=== PATIENT | female | born 1940 | race Caucasian/White ===

== ENCOUNTER 2016-06-23 12:32 | Observation (INO) | payer MEDICARE, BC ==
--- NOTE | ~2016-06-23 | CO ---
Unit #: [id number] #: [id number] Patient: ASHA MORALES [id number] [facility]. [place] [address] [facility]. [place], [place] [address] [id number] I MR#: [id number] NAME: ASHA MORALES ROOM: 550 Age: 75 Sex: F Admission Date: 06/23/2016 : 1940 Attending Physician: Iglesia Tse M.D. Primary Care Physician: James Chaudhari Jr., M.D. Consultation Date: 06/24/2016 CONSULTATION REPORT REASON FOR CONSULTATION Palpitations. HISTORY OF PRESENT ILLNESS This is a 75-year-old white female, who sees Dr. Mariano in the office, who has a history of pulmonary embolism, has a vena cava filter, hypertension, hyperlipidemia, chronic kidney disease, hypothyroidism. Had a normal cath back in 2011, who came to the emergency room after having an episode of palpitations, weakness, lightheadedness, and blurry vision. According to the patient, it has been some time since she has had any of these episodes. She said a couple days ago she had driven to the store with her grandson and when she got there she started feeling her heart pounding. She says more like pounding rather than racing. She said that it lasted for about two to three minutes. She said her vision became very blurry. She became very weak. She sat there for a few minutes and then the symptoms resolved. She drove herself back home. She states then yesterday afternoon she had another episode where her heart was pounding and she became again lightheaded and blurry vision. She denies any chest pain, pain in her neck, bilateral jaws, shoulders, arms, or elbows. She denies any shortness of breath. No recent cough, fever, or chills. Denies any headache. She did have a little tingling in her right upper extremity. She said she had surgery there about three years ago and has a plate. She says sometimes she has some numbness and tingling in that arm. She denies any paroxysmal nocturnal dyspnea or orthopnea. In the emergency room, the patient's CT of the head did not show anything acute. Her chest x-ray did not show anything significant. EKG shows sinus bradycardia, heart rate 58 beats per minute. Initial labs: Her creatinine is 1.1, potassium 4.1. Her hemoglobin is 11.9. Initial cardiac enzymes are negative. Blood pressure was 113/85. The patient will be admitted with dizziness, palpitations, and for further evaluation. Cardiology consulted. PAST MEDICAL HISTORY 1. In 2011, heart catheterization: Normal coronaries. 2. Hypertension. 3. Hyperlipidemia. 4. September 2014, a 2D echo: LV EF of 60% with seec-jt-vvcufgsx mitral regurgitation, xjpo-su-qlzihgls aortic regurgitation with moderate tricuspid regurgitation with elevated RVSP 30-40 mmHg. 5. History of pulmonary embolus, has a vena cava filter. 6. Chronic kidney disease, stage 3. 7. Hypothyroidism. 8. September 2014, a 24-hour Holter revealed sinus bradycardia, normal sinus rhythm which reveals 52-64 beats per minute, no atrial or ventricular Unit #: [id number] #: [id number] Patient: ASHA MORALES arrhythmias. No pauses. A 5-beat run of atrial tachycardia with a history of 120 beats per minute and occasional premature atrial contractions. 9. Reformed smoker. PAST SURGICAL HISTORY 1. History of right arm fracture repair, has a katlyn in her right shoulder. 2. Left heel fracture repair. 3. Hysterectomy. 4. Tonsillectomy. 5. Cystoscopy. HOME MEDICATIONS 1. Levothyroxine 100 mcg p.o. daily. 2. Prilosec 20 mg p.o. daily. 3. Aspirin 81 mg p.o. daily. 4. Metoprolol 25 mg p.o. twice daily. 5. Fluoxetine 20 mg p.o. at bedtime. 6. Lovaza two capsules p.o. twice daily. 7. Lasix 40 mg p.o. daily. 8. Multivitamin one tablet p.o. daily. 9. Calcium, magnesium, and vitamin D one tablet p.o. twice daily. 10. Vitamin B12 at 5000 mcg p.o. daily. 11. Vitamin D3 at 800 international units p.o. daily. 12. VESIcare 5 mg p.o. daily. 13. Coumadin 2 mg on Friday, Friday, and 4 mg on Friday, Friday, Friday. 14. Losartan 50 mg p.o. daily. 15. Lipitor 20 mg p.o. daily. ALLERGIES No known drug allergies. SOCIAL HISTORY The patient lives in her home alone. She quit smoking 16 years ago. Denied alcohol, illicit drug abuse. She is fairly sedentary but does continue to drive. She ambulates without a cane and walker. FAMILY HISTORY Positive for amyloidosis. No known coronary disease in immediate family members. REVIEW OF SYSTEMS See details in HPI. PHYSICAL EXAMINATION GENERAL: On exam, Ms. Morales is a 75-year-old white female in no acute respiratory distress. She is awake, alert, and oriented. VITAL SIGNS: Orthostatic vitals are pending. Vital signs are 139/64, heart rate 58, respiratory rate 18, temperature 98, O2 saturations 96% on room air. NECK: Trachea is midline. No thyromegaly, lymphadenopathy. Normal carotid upstrokes. No jugular venous distention. HEART: S1, S2. Regular rate and rhythm. A soft systolic murmur over aortic region, left sternal border. LUNGS: Bilaterally clear throughout. No wheezes, rales, or rhonchi. ABDOMEN: Obese, soft, nontender. Positive bowel sounds present. Unit #: [id number] #: [id number] Patient: ASHA MORALES EXTREMITIES: Pedal pulses are palpable. No pedal edema. DIAGNOSTIC STUDIES LABORATORY: Glucose is 106, BUN 16, creatinine 1.1, eGFR is 48.7, sodium 141, potassium 4.1, chloride 107, CO2 of 25. Calcium is 9. Magnesium is 2.1. Total protein 6.3, albumin 3.7, bilirubin total 0.3, AST 30, ALT 39, alkaline phosphatase 62. WBC 4.5, hemoglobin 11.9, hematocrit 36.3, platelets 133,000 down from 155,000. Initial cardiac enzymes: CK-MB is less than 1, troponin less than 0.05. CK-MB is less than 1, troponin less than 0.05. INR is 2.5, total is 1.8. Urinalysis: One plus leukocyte esterase, 1+ urobilinogen, otherwise unremarkable. IMAGING: Chest x-ray shows no active disease. CT of the head without contrast, nothing acute. CARDIOVASCULAR: EKG shows sinus bradycardia, heart rate 58 beats per minute. No acute ischemic changes. IMPRESSION 1. Palpitations. 2. Dizziness. 3. Normal coronaries per cardiac cath in 2011. 4. History of hypertension. 5. Hyperlipidemia. 6. Left ventricular ejection fraction of 60% on 2D echocardiogram in 2015, pxtp-ku-xcqvmiws mitral regurgitation, srhd-hs-pysojgrz aortic regurgitation, moderate tricuspid regurgitation with elevated right ventricular systolic pressure 30-40 mmHg. 7. History of pulmonary embolus, has vena cava filters, on Coumadin. 8. Chronic kidney disease stage 3. 9. Hypothyroidism. 10. Reformed smoker. PLAN 1. Cardiology consulted to assist with evaluation and management. 2. Currently, patient's monitor shows normal sinus rhythm. 3. So far, there are no arrhythmias noted but will arrange for our office to get to the patient a 30-day event monitor to evaluate for any arrhythmias that they felt patient is having during her episodes. 4. Patient is planned to have a MRI and MRA to evaluate. 5. Obtain a TSH and evaluate. 6. Obtain orthostatic vitals and evaluate for any orthostasis. 7. On exam, there are no signs or symptoms of unstable angina. Cardiac enzymes are negative. EKG does not show anything acute. 8. No signs or symptoms of acute congestive heart failure. 9. Patient is subtherapeutic this morning on her Coumadin but will receive a dose today. 10. If her MRI and MRA of the head and neck are negative, the patient is going to be discharged home later today. 11. Instruct the patient to follow with Dr. Mariano on Friday, July 31, at 12:30 p.m. and by then will get the results of event monitor. 12. Further recommendations pending per Dr. Mariano. Thank you very much for allowing us to assist in the care. Unit #: [id number] #: [id number] Patient: ASHA MORALES Dictated by... Irina UmañaPSofiaNQuin for Josefa Driver/brain TD: 06/25/2016 11:07 JOB #: [id number] CC: James Chaudhari Jr., M.D. CONSULTATION REPORT Page 1 of 1 X Meche Yip APRN CONSULTATION REPORT
--- NOTE | ~2016-06-23 | CR72 ---
[facility] A Service of [facility] RADIOLOGY TEXT RESULTS PATIENT: ASHA ABBOTT LOCATION: [facility] 550[facility] : 39 UNIT #: [id number] AGE: [address]: Iglesia Tse MD SEX: F ORDER DR: [id number] [facility] [address] [facility]. [place], [place] [address] [id number] I MR#: [id number] Acc #: [id number] NAME: ASHA ABBOTT : 1940 SEX: F STUDY DATE/TIME: 06/23/2016 12:18 UNIT: CEDOF ROOM: 01451 STUDY DESCRIPTION: CR Chest Single View Portable Attending Physician: Fabiola Sparks M.D. Ordering Physician: Timbo Aguilera D.O. Primary Care Physician: James Chaudhari Jr., M.D. MEDICAL IMAGING REPORT This report is preliminary unless electronic signature is present EXAM Portable chest, 06/23/2016 HISTORY Dizzy and heart palpitations and right arm pain and chest pain for 3 days. FINDINGS The cardiac size and pulmonary vascularity are normal. No infiltrates or effusions. Internal fixation proximal right humerus. IMPRESSION No acute findings. No active disease. Dictated by... Gopal Barker M.D. THIS IS AN ELECTRONICALLY VERIFIED REPORT Gopal Barker M.D. at 06/24/2016 2:59 PM DFL/mario TD: 06/24/2016 01:28 JOB #: [id number] MEDICAL IMAGING REPORT Page 1 of 1 COPY
--- NOTE | ~2016-06-23 | HP ---
Unit #: [id number] #: [id number] Patient: ASHA ABBOTT [id number] [address] [place], [place] [address] [id number] I MR#: [id number] NAME: ASHA ABBOTT ROOM: 550 Age: 75 Sex: F Admission Date: 06/23/2016 : 1940 Attending Physician: Iglesia Tse M.D. Primary Care Physician: James Chaudhari Jr., M.D. HISTORY AND PHYSICAL CHIEF COMPLAINT Dizziness. HISTORY OF PRESENT ILLNESS The patient is a 75-year-old female with history of valvular heart disease, pulmonary hypertension and history of pulmonary embolism and DVT, on chronic anticoagulation. Presented to the emergency room with dizziness associated with palpitations and right arm numbness. The patient stated it started last with dizziness and vision changes; that is, (1) of both eyes at the same time that was lasting for 10 minutes. The dizziness continued to worsen to the point that she could not take it anymore, and she presented to the emergency room. The patient denies any near syncope or syncopal episodes. The patient stated that she also felt palpitations associated with dizziness. Denies any fever, chills, diaphoresis. PAST MEDICAL HISTORY History of hypertension, hyperlipidemia, hypothyroidism, chronic kidney disease, DVT and PE. PAST SURGICAL HISTORY History of right arm fracture repair, left heel fracture repair, hysterectomy, tonsillectomy, cystoscopy. HOME MEDICATIONS She is on levothyroxine, Prilosec, aspirin, Metoprolol, Lovaza, multivitamin, oxybutynin, warfarin, losartan, potassium, atorvastatin. ALLERGIES No known drug allergies. SOCIAL HISTORY The patient is retired. Lives at home. She reports she quit smoking 16 years ago. Denies any alcohol or drug abuse. FAMILY HISTORY Positive for amyloidosis. REVIEW OF SYSTEMS A 14-point review of systems was performed, and all the pertinent positive findings are described above. The remaining are negative. PHYSICAL EXAMINATION GENERAL: The patient is lying in the bed, not in acute distress. Unit #: [id number] #: [id number] Patient: ASHA ABBOTT VITALS: Temperature is 98.6, pulse 63, respiratory rate 16, blood pressure 113/85, satting 100% on room air. HEENT: Head atraumatic, normocephalic. Pupils are equally round reactive to light and accommodation. Extraocular movements are intact. NECK: Supple. No JVD. CHEST: Lungs clear to auscultation. CARDIOVASCULAR: Regular rate and rhythm. ABDOMEN: Soft. Positive bowel sounds. EXTREMITIES: No cyanosis. No clubbing. NEUROLOGIC: Alert, awake, oriented. No gross focal motor deficit. DIAGNOSTIC STUDIES IMAGING: CT of the head is negative. Chest x-ray is negative. CARDIOVASCULAR: The EKG shows sinus bradycardia at a rate of 58, P-R interval of 142, QTc of 428. LAB DATA: Glucose 98, BUN 14, creatinine 1, sodium 141, potassium 4.5, chloride 106, bicarb 25, calcium 8.8, total protein 6.3, AST 30, ALT 39, alkaline phosphatase 62. INR is 2.5. WBC is 4.2, hemoglobin 13.1, hematocrit 39.7, platelets 150. UA shows 1+ leukocyte esterase, negative bacteria, negative WBCs. ASSESSMENT 1. Dizziness. 2. Palpitations. 3. History of DVT and PE. 4. Hypertension. PLAN Plan to admit the patient to observation with telemetry. The patient will have a neurology consultation with MRI of the brain. The patient will follow with cardiology, as the patient has been followed by cardiology in the past for palpitations. Repeat the CBC, BMP in the morning and serial troponins to rule out ischemia. Further recommendations will follow. Dictated by Josefa Sheffield TD: 06/24/2016 08:34 JOB #: [id number] HISTORY AND PHYSICAL Page 1 of 1 X X HISTORY AND PHYSICAL
--- NOTE | ~2016-06-23 | MR134 ---
[facility] A Service of [facility] RADIOLOGY TEXT RESULTS PATIENT: ASHA ABBOTT LOCATION: [facility] 550-01 : 39 UNIT #: [id number] AGE: [address]: Iglesia Tse MD SEX: F ORDER DR: [id number] [facility] [address] [facility]. [place], [place] [address] [id number] I MR#: [id number] Acc #: [id number] NAME: ASHA ABBOTT : 1940 SEX: F STUDY DATE/TIME: 06/24/2016 18:17 UNIT: [facility] ROOM: [facility] STUDY DESCRIPTION: MR MRA Neck Wo Contrast Attending Physician: Iglesia Tse M.D. Ordering Physician: Charlie Mendoza M.D. Primary Care Physician: James Chaudhari Jr., M.D. MRI CENTER REPORT This report is preliminary unless electronic signature is present. MRA NECK WITHUT CONTRAST Neck without contrast HISTORY Chronic dizziness, worse 3 days ago, since improved. FINDINGS MR angiogram of the neck was performed without contrast. Evaluation of the proximal to mid common carotid arteries is quite limited by motion. The origins of the common carotid arteries and vertebral arteries are not well evaluated and the evaluation of the proximal vertebral arteries is also quite limited by motion. The distal common carotid arteries appear widely patent. There is no evidence of stenosis in the carotid bulbs or cervical internal carotid arteries, by NASCET criteria. Both vertebral arteries appear codominant. IMPRESSION 1. No evidence of carotid stenosis. No hemodynamically significant stenosis by NASCET criteria in the visualized carotid arteries. The carotid artery evaluation is limited in the lower neck and the origins of the common carotid arteries and vertebral arteries are poorly seen and the proximal common carotid artery evaluation is also limited by motion artifact. 2. Both vertebral arteries are patent and codominant. Dictated by... Gopal Barker M.D. THIS IS AN ELECTRONICALLY VERIFIED REPORT [facility] A Service [facility] RADIOLOGY TEXT RESULTS PATIENT: ASHA ABBOTT LOCATION: [facility] 550-01 : 39 UNIT #: [id number] AGE: [address]: Iglesia Tse MD SEX: F ORDER DR: Gopal Barker M.D. at 06/25/2016 3:54 PM DFL/wilfred TD: 06/25/2016 07:29 JOB #: [id number] MRI CENTER REPORT Page 1 of 1 COPY
--- NOTE | ~2016-06-23 | CO ---
Unit #: [id number] #: [id number] Patient: ASHA ABBOTT [id number] [facility] [address] [facility]. [place], [place] [address] [id number] I MR#: [id number] NAME: ASHA ABBOTT ROOM: 550 Age: 75 Sex: F Admission Date: 06/23/2016 : 1940 Attending Physician: Iglesia Tse M.D. Primary Care Physician: James Chaudhari Jr., M.D. Consultation Date: 06/24/2016 CONSULTATION REPORT PRIMARY CARE PHYSICIAN James Chaudhari M.D. REASON FOR CONSULTATION Dizziness. PATIENT IDENTIFICATION This is a 75-year-old right-handed white female, who was evaluated in room [address] [facility]. SOURCE OF INFORMATION The patient and evaluation done by admitting team. PROBLEM LIST 1. Valvular heart disease. 2. Pulmonary hypertension. 3. Pulmonary embolism and DVT, on chronic anticoagulation. 4. Hyperlipidemia. 5. Hypothyroidism. 6. Chronic kidney disease. 7. Status post right arm fracture repair and left heel fracture repair. 8. Hysterectomy. 9. Tonsillectomy. 10. Cystoscopy. HISTORY OF PRESENT ILLNESS This is a 75-year-old right-handed white female with history as above who reported dizziness. She says that she has been having dizziness for decades and the typical dizziness is when she gets up and feels lightheaded lasting a few seconds. This Friday it lasted a bit longer, so that is why she came to the emergency room. There is never loss of consciousness. There is no double vision. There is no speech swallowing or breathing problem. There is no focal numbness or tingling. She would sit down or stay still and everything is fine then. There was no change in medication except for her triglyceride medication. Cardiology saw her and they are doing workup on her. I see random blood pressure and the blood pressure is anywhere from 108 systolic to 155 Unit #: [id number] #: [id number] Patient: ASHA ABBOTT systolic and the diastolic has varied from 57 to 104. The heart rate has been in the 50s and lower 60s. Her head CT was okay. Random glucose is 98 to 106 and previously B12 was okay and previously hemoglobin A1c was okay. INR was 2.5 yesterday. White count is 4.5, H and H are 11.9 and 36.3, platelet count was 133. Urinalysis also really did not show anything impressive. No seizures. No other issues. PAST MEDICAL HISTORY As discussed above. PAST SURGICAL HISTORY As discussed above. ALLERGIES None. HOME MEDICATIONS Levothyroxine, Prilosec, aspirin, metoprolol, Lovaza, multivitamin, oxybutynin, warfarin, losartan, potassium, atorvastatin. FAMILY HISTORY Amyloidosis. SOCIAL HISTORY She is retired, lives at home. She quit smoking 16 years ago. Denies any alcohol or drug use. REVIEW OF SYSTEMS Detailed review of systems was attempted. GENERAL: The patient denies any weight issues, fever, chills, rigor, or sweats. HEENT: No headaches. No double vision, earache, runny nose, or sore throat. CARDIOVASCULAR: No chest pain, clubbing, cyanosis, orthopnea, or palpitation. PULMONARY: No shortness of air, cough, or expectoration. GI: No nausea, vomiting, diarrhea, or constipation. GENITOURINARY: No genitourinary symptom. EXTREMITIES: No extremity problem. BACK: No back problem. PSYCHIATRIC: No psychotic issue otherwise. NEUROLOGIC: No other neurologic issue. No other hematologic, dermatological, endocrine problem known to me. PHYSICAL EXAMINATION VITAL SIGNS: Temperature 97.9, pulse 57, respirations 18, blood pressure 155/70, weight of 199 pounds, BMI was 31. NEUROLOGIC: The patient is awake. She is alert. She is oriented. She can name and she can follow commands. No right or left confusion. No finger agnosia. Cranial nerve examination demonstrates full olea of vision to confrontation. Eye movements are conjugate. I did not see any ptosis. I Unit #: [id number] #: [id number] Patient: ASHA ABBOTT did not see any nystagmus. Extraocular movements are intact. Sensation on the face and scalp are normal. Strength of muscles of facial expression normal. Hearing seemed to be intact bilaterally. Tongue was midline. Uvula was midline. Palate elevation was normal. Head turning and shoulder shrugs were unremarkable. Motor examination demonstrated normal bulk, tone. Strength was essentially 5/5. Sensory examination intact for soft touch and pain sensation. No extinction was seen. Romberg was not evaluated. Gait examination was deferred. I could not get any reflexes. Toes are equivocal. Coordination was normal. DIAGNOSTIC STUDIES LABORATORY RESULTS: Reviewed and as discussed. IMAGING STUDIES: Reviewed and as discussed. IMPRESSION This is a very interesting 75-year-old female with episodic dizziness and that is a feeling of almost passing out. This is not classic vertigo. My biggest concern is to make sure this is not postural hypotension and Cardiology is looking into that. This does not look like stroke or TIA or seizure or vertebrobasilar insufficiency, but I will check her MRI and MRA and I will check her hemoglobin A1c and B12 level and if they are okay, I will observe her per Neurology. Call me for any other questions, issues, or concerns, and further treatment will be based on any findings if they are positive. Dictated by... Josefa Lobo/meena TD: 06/24/2016 23:00 JOB #: [id number] CONSULTATION REPORT Page 1 of 1 X Charlie Mendoza MD X CONSULTATION REPORT
--- NOTE | ~2016-06-23 | MR122 ---
[facility] A Service of [facility] RADIOLOGY TEXT RESULTS PATIENT: ASHA ABBOTT LOCATION: [facility] [address] : 39 UNIT #: [id number] AGE: [address]: Iglesia Tse MD SEX: F ORDER DR: [id number] [facility] [address] [facility]. [place], [place] [address] [id number] I MR#: [id number] Acc #: [id number] NAME: ASHA ABBOTT : 1940 SEX: F STUDY DATE/TIME: 06/24/2016 18:09 UNIT: [facility] ROOM: [facility] STUDY DESCRIPTION: MR MRA Head Wo Contrast Attending Physician: Iglesia Tse M.D. Ordering Physician: Charlie Mendoza M.D. Primary Care Physician: aJmes Chaudhari Jr., M.D. MRI CENTER REPORT This report is preliminary unless electronic signature is present. EXAM MR angiogram brain without contrast HISTORY Chronic dizziness, worse 3 days ago, since improved. FINDINGS MR angiogram of the brain was performed without contrast. The intracranial internal carotid arteries are widely patent and the intracranial vertebral arteries and basilar artery are also widely patent. The anterior cerebral, middle cerebral and posterior cerebral arteries are patent bilaterally with no focal stenosis, aneurysm or vascular malformation. Patent bilateral posterior communicating arteries, larger on the right, with relatively hypoplastic right P1 segment. No aneurysm or vascular malformation is identified. IMPRESSION 1. Normal MR angiogram of the brain. 2. No intracranial stenosis or major vessel occlusion. 3. Bilateral posterior communicating arteries are incidentally noted. Dictated by... Gopal Barker M.D. THIS IS AN ELECTRONICALLY VERIFIED REPORT Gopal Barker M.D. at 06/25/2016 3:54 PM DFL/bd TD: 06/25/2016 07:28 JOB #: [id number] [facility] A Service of [facility] RADIOLOGY TEXT RESULTS PATIENT: ASHA ABBOTT [id number] UNIT #: [id number] AGE: [address]: Iglesia Tse MD SEX: F ORDER DR: MRI CENTER REPORT Page 1 of 1 COPY
--- NOTE | ~2016-06-23 | CT71 ---
[facility] A Service of [facility] RADIOLOGY TEXT RESULTS PATIENT: ASHA ABBOTT LOCATION: C5 550-01 : 39 UNIT #: [id number] AGE: [address]: Iglesia Tse MD SEX: F ORDER DR: [id number] [facility] [address]. [place], [place] [address] [id number] I MR#: [id number] Acc #: [id number] NAME: ASHA ABBOTT : 1940 SEX: F STUDY DATE/TIME: 06/23/2016 13:31 UNIT: CEDOF ROOM: [id number] STUDY DESCRIPTION: CT Head Wo Contrast Attending Physician: Fabiola Sparks M.D. Ordering Physician: Timbo Aguilera D.O. Primary Care Physician: James Chaudhari Jr., M.D. MEDICAL IMAGING REPORT This report is preliminary unless electronic signature is present EXAM CT brain without contrast, 06/23/2016 HISTORY Dizzy and visual disturbance for [address] exam was performed with one or more of the following radiation dose reduction techniques: automatic exposure control, adjustment of mA and/or kV according to patient size, and iterative reconstruction. FINDINGS CT brain without contrast demonstrates no intracranial hemorrhage, mass or edema. No midline shift or ventricular dilatation or extraaxial fluid collection. Minimal chronic ischemic changes in the deep white matter bilaterally. IMPRESSION No acute findings. Dictated by... Gopal Barker M.D. THIS IS AN ELECTRONICALLY VERIFIED REPORT Gopal Barker M.D. at 06/24/2016 3:00 PM DFParam/mario TD: 06/24/2016 04:24 JOB #: [id number] [facility] A Service [facility] RADIOLOGY TEXT RESULTS PATIENT: ASHA ABBOTT LOCATION: [facility] 550-01 : 39 UNIT #: [id number] AGE: [address]: Iglesia Tse MD SEX: F ORDER DR: MEDICAL IMAGING REPORT Page 1 of 1 COPY
--- NOTE | ~2016-06-23 | MR18 ---
[facility] A Service of [facility] RADIOLOGY TEXT RESULTS PATIENT: ASHA ABBOTT LOCATION: [facility] 550-01 : 39 UNIT #: [id number] AGE: [address]: Iglesia Tse MD SEX: F ORDER DR: [id number] [facility] [address]. [place], [place] [address] [id number] I MR#: [id number] Acc #: [id number] NAME: ASHA ABBOTT : 1940 SEX: F STUDY DATE/TIME: 06/24/2016 17:50 UNIT: [facility] ROOM: [facility] STUDY DESCRIPTION: MR Brain Wo Contrast Attending Physician: Iglesia Tse M.D. Ordering Physician: Charlie Mendoza M.D. Primary Care Physician: James Chaudhari Jr., M.D. MRI CENTER REPORT This report is preliminary unless electronic signature is present. EXAM MRI brain without contrast HISTORY Chronic dizziness, worse 3 days ago. Symptoms have since improved. FINDINGS MRI brain was performed without contrast. There is no recent ischemia or infarct. No midline shift or ventricular dilatation or extraaxial fluid collection. Mild chronic ischemic changes in the deep white matter bilaterally. No focal atrophy or extraaxial fluid collection. IMPRESSION No acute findings. No recent ischemia or infarct. Mild chronic ischemic changes in the deep white matter bilaterally. Dictated by... Gopal Barker M.D. THIS IS AN ELECTRONICALLY VERIFIED REPORT Gopal Barker M.D. at 06/25/2016 3:54 PM DESTINY/hanane TD: 06/25/2016 07:35 JOB #: [id number] MRI CENTER REPORT Page 1 of 1 COPY
--- NOTE | ~2016-06-23 | EKG ---
PATIENT: ASHA ABBOTT UNIT #: [id number] Ventricular Rate: 58 BPM Atrial Rate: 58 BPM P-R Interval: 142 ms QRS Duration: 96 ms Q-T Interval: 436 ms QTC Calculation(Bezet): 428 ms P [place]: 46 degrees Calculated R Cleveland: 5 degrees Calculated T Cleveland: 14 degrees Diagnosis Line: Sinus bradycardia Diagnosis Line: Otherwise normal ECG Diagnosis Line: When compared with ECG of 20-NOV-2011 05:47, Diagnosis Line: QT has shortened Diagnosis Line: Confirmed by ESTEBAN CASILLAS MD ([id number]) on Diagnosis Line: 06/23/2016 2:22:39 PM INTERPRETING MD: JEAN MARIE
--- NOTE | ~2016-06-23 | DS ---
Unit #: [id number] #: [id number] Patient: ASHA ABBOTT [id number] [address] [place], [place] [address] [id number] I MR#: [id number] NAME: ASHA ABBOTT ROOM: 550 Age: 75 Sex: F Admission Date: 06/23/2016 : 1940 Discharge Date: 06/24/2016 Attending Physician: Iglesia Tse M.D. Primary Care Physician: James Chaudhari Jr., M.D. DISCHARGE SUMMARY Maria David PA-C, dictating for Iglesia Tse M.D. DISCHARGE DIAGNOSES 1. Dizziness, working up to rule out for cerebrovascular accident or any arrhythmia. 2. Palpitations with negative cardiac enzymes. 3. History of deep venous thrombosis and pulmonary embolism, maintained on Coumadin. INR on admission was therapeutic at 2.5. 4. Essential hypertension. Blood pressure has been stable during this hospitalization. 5. Dyslipidemia, on statin therapy. 6. History of hypothyroidism. TSH was 4.03. Checking of free T4 at this time. 7. Chronic kidney disease, stage 2, and stable. CONSULTANTS 1. Charlie Mendoza M.D. of Neurology. 2. Marisa Mariano M.D. of Cardiology. PROCEDURES None. DIAGNOSTIC STUDIES IMAGING STUDIES: Consist of a chest x-ray on 06/23/2016, impression, no acute findings, no active disease. Head CT without contrast on 06/23/2016, no acute findings. The patient has orders for MRI of brain, MRA of head and neck per Neurology. This will be done and please see dictated result summary. LABORATORY RESULTS: On the day of discharge, the patient's labs include BMP, glucose 106, BUN 16, creatinine 1.1, sodium 141, potassium 4.1, chloride 107, CO2 of 25, calcium 9.0, magnesium 2.1, total protein 6.3, albumin is 3.7, total bilirubin 0.3, AST 30, ALT 39, alkaline phosphatase 62. The patient did have serial troponins obtained, which were all undetectable. CBC with WBC 4.5, RBC 4.02, hemoglobin 11.9, hematocrit 36.3, MCV 90.3, MCH is 29.6, MCHC is 33.9, RDW is 14.9, platelets 133, MPV 3.4. Dr. Mendoza did ask for assessment of B12, which was greater than 1500. Folate was greater than 32.6. A1c is still being recorded. Urinalysis unremarkable. HOSPITAL COURSE The patient is a pleasant 75-year-old female with past medical history of valvular heart disease, pulmonary hypertension, remote pulmonary embolism Unit #: [id number] #: [id number] Patient: ASHA ABBOTT and DVT and is chronically on Coumadin, who presents to the emergency department with symptoms of dizziness associated with palpitations, right arm numbness. The patient stated that it started with symptoms of dizzy and visual changes in both of her eyes and would last about 10 minutes. The patient does have some other upper respiratory symptoms including congestion. The dizziness had worsened to the point where she is not able to take it anymore and presented to the emergency department for further evaluation. The patient denied near syncope or syncopal event. The patient states that she felt palpitations associated with the dizziness. The patient denies fever, chills, or diaphoresis. The patient was admitted under observation due to the persistent dizziness and palpitations. She was seen in consultation with Cardiology who felt that she is stable from their standpoint, but this could be further assessed with cardiac event monitoring and have also placed parameters on her pulse level, and due to her low limit of heart rate in the 50s that she was stable to be discharged from their standpoint. She will follow up with Dr. Mariano on 07/31/2016 at 12:30, and she was also seen in consultation with Dr. Mendoza of Neurology who felt that may be her symptoms is more postural in nature, but we will rule out CVA with an MRA of head and neck, and stated that if this is normal, then the patient is stable to be discharged home. DISCHARGE CONDITION At this time, discharge condition is stable. DISCHARGE DIET Heart healthy diet. DISCHARGE ACTIVITIES Resume activities as was prior to hospitalization with ambulating every day as tolerated. The patient will be discharged home. She lives at home with her grandson who is 20 years old. DISCHARGE FOLLOWUP Follow up with Dr. Mariano on 07/31/2016 at 12:30. Follow up with primary care physician within 1 to 2 weeks and she can get repeat BMP at that time to assess for her kidney function. DISCHARGE MEDICATIONS Warfarin 2 mg on Friday, Friday, , Friday and 4 mg on Friday, Friday, Friday; fluoxetine 20 mg at bedtime; Lovaza 2 capsules orally b.i.d., Lopressor (metoprolol tartrate) 25 mg orally b.i.d. hold for systolic blood pressure under 100 or heart rate under 60, Lasix 40 mg orally daily, VESIcare 5 mg orally daily, Lipitor 20 mg at bedtime, losartan 50 mg orally daily, multivitamin 1 tablet orally daily, aspirin 81 mg orally daily, omeprazole 20 mg orally daily, calcium plus D one tablet orally b.i.d., levothyroxine 100 mcg orally daily, vitamin D3 of 800 international units orally daily, vitamin B12 of 5000 mcg orally daily. Dictated by... KIERAN Pelletier/meena TD: 06/25/2016 09:12 JOB #: [id number] Unit #: [id number] #: [id number] Patient: ASHA ABBOTT DISCHARGE SUMMARY Page 1 of 1 X X DISCHARGE SUMMARY
[~2016-06-23 12:32] MED LIST: ALENDRONATE SOD70 MG; ASPIRIN81 M1 PO; B-12500 MCG PO; B-COMPLEX W/1 TAB.SA; BENICAR20 MG PO; CAL-CITRATE PL1 EACH PO; CALCIUM 600 W/V1 TA2; CALCIUM CITRAT1 EACH PO; CALCIUM MAGNESI1 TA1 PO; CENTRUM SILVER PO; CERTAGEN; CLARITIN10 M1 PO; COUMADIN2.5 MG PO; CRESTOR10 MG; CRESTOR10 MG PO; ECOTRIN81 M1; FENOFIBRATE160 MG PO; FEOSOL PO; FLAGYL PO; FLUOXETINE HCL20 M1 PO; FOSAMAX70 MG PO; HYDROCHLOROTH12.5 M1 PO; HYDROCHLOROTH12.5 MG; HYDROCHLOROTH12.5 MG PO; IBUPROFEN800 MG; LASIX20 MG PO; LEVOTHROID100 MC1; LEVOTHROID100 MC1 PO; LIPITOR20 MG PO; LISINOPRIL10 MG PO; LOVAZA1 G PO; LOVENOX SUBQ; METOPROLOL SUCC25 MG; METOPROLOL TAR25 MG PO; MIRALAX17 G1 PO; MULTI VITAMINS W1 MG PO; PERCOCET5/325 PO; PRILOSEC20 M1 PO; PRILOSEC20 MG; PRINIVIL10 MG PO; SARAFEM20 MG; ST JOSEPH ASPIR81 M1 PO; SYNTHROID0.1 MG PO; VESICARE PO; VIT B-12 PO; VITAMIN D3400 UNI1 PO; VITAMIN D5000 UNIT PO; VITAMIN D50000 UNIT PO; [UNRECOGNIZED DRUG - OTHER] PO; [UNRECOGNIZED DRUG - OTHER] PO
[2016-06-23 12:33] LABS: BASOPHIL# 0.1 X10e3 (0-0.3); BASOPHIL% 1.4 % (0-2.5); EOSINOPHIL# 0.1 X10e3 (0-0.7); EOSINOPHIL% 2.1 % (0.0-7.0); HEMATOCRIT 39.7 % (35.0-45.0); HEMOGLOBIN 13.1 gm/dL (12.0-16.0); LYMPHOCYTE# 1.4 X10e3 (1.0-3.5); LYMPHOCYTE% 32.9 % (17.0-45.0); MEAN CELL VOLUME 89.3 FL (83-96); MEAN CORPUSCULAR HEMOGLOBIN 29.3 PG (28-34); MEAN CORPUSCULAR HGB CONC 32.8 g/dL (30-36); MEAN PLATELET VOLUME 8.3 FL (6.5-11.5); MONOCYTE# 0.3 X10e3 (0-1.0); MONOCYTE% 7.7 % (3.0-12.0); NEUTROPHIL# 2.4 X10e3 (1.5-7.1); NEUTROPHIL% 55.9 % (40-75); PLATELET COUNT 150 X10e3 (140-420); RED BLOOD COUNT 4.45 X10e (3.90-5.30); RED CELL DISTRIBUTION WIDTH 15.2 % (11.0-15.5); WHITE BLOOD COUNT 4.2 X10e3 (4.0-10.5)
[2016-06-23 12:37] LABS: DIFF IND NO
[2016-06-23 12:48] LABS: INR 2.5; PARTIAL THROMBOPLASTIN TIME 33.2 SECONDS (23.5-31.3); PROTHROMBIN TIME (PATIENT) 26.7 SECONDS (9.6-11.5)
[2016-06-23 13:01] LABS: ALBUMIN SERUM 3.7 g/dL (3.5-5.0); BILIRUBIN, DIRECT 0.1 mg/dL (0.0-0.2); BILIRUBIN,INDIRECT 0.2 mg/dL (0.0-0.9); BILIRUBIN,TOTAL 0.3 mg/dL (0.2-2.0); CALCIUM SERUM 8.8 mg/dL (8.4-10.2); GLOM FILT RATE Estimated 54.7 mL/min (>60); POTASSIUM 4.5 mmol/L (3.5-5.1); PROTEIN TOTAL SERUM 6.3 g/dL (6.0-8.3)
[2016-06-23 13:23] LABS: URINE SOURCE CLEAN CATCH
[2016-06-23 13:28] LABS: URINE APPEARANCE CLOUDY; URINE BILIRUBIN NEG (NEG); URINE BLOOD NEG (NEG); URINE COLOR YELLOW; URINE GLUCOSE NEG (NEG); URINE KETONE NEG (NEG); URINE LEUKOCYTE ESTERASE 1+ (NEG); URINE NITRATE NEG (NEG); URINE PH 7.5 (5-8); URINE PROTEIN NEG (NEG); URINE SPECIFIC GRAVITY 1.017 (1.003-1.035)
[2016-06-23 13:30] LABS: URBCS1 AUWI 0-2 /[HPF] (0-2); URINE BACTERIA AUWI NEG (NEGATIVE); URINE SQUAMOUS EPITHELIAL CELL NONE SEEN /[HPF]
[2016-06-23 13:31] LABS: CULTURE INDICATED? NO
[2016-06-23 13:45] LABS: POC - CKMB <1.0 ng/mL (0.0-7.9); POC - TROPONIN <0.05 ng/mL (<=0.05)
[2016-06-23 14:30] LABS: POC - CKMB <1.0 ng/mL (0.0-7.9); POC - TROPONIN <0.05 ng/mL (<=0.05)
[2016-06-23] MEDS ORDERED: ASPIRIN81 MG PO (18:30)
[2016-06-23] MEDS ORDERED: PRILOSEC PO (18:30)
[2016-06-23] MEDS ORDERED: LEVOTHYROXINE100 MCG PO (18:30)
[2016-06-23] MEDS ORDERED: SARAFEM20 MG PO (18:31)
[2016-06-23] MEDS ORDERED: METOPROLOL TAR25 MG PO (18:31)
[2016-06-23] MEDS ORDERED: MULTI-VITAMIN1 EAC1 PO (18:32)
[2016-06-23] MEDS ORDERED: LASIX PO (18:32)
[2016-06-23] MEDS ORDERED: LOVAZA1 G PO (18:32)
[2016-06-23] MEDS ORDERED: CALCIUM MAGNESI1 TA1 PO (18:35)
[2016-06-23] MEDS ORDERED: VITAMIN D3400 UNI1 PO (18:36)
[2016-06-23] MEDS ORDERED: VIT B-12 PO (18:36)
[2016-06-23] MEDS ORDERED: VESICARE PO (18:37)
[2016-06-23] MEDS ORDERED: COUMADIN4 MG PO (18:38)
[2016-06-23] MEDS ORDERED: WARFARIN SODIUM2 MG PO (18:38)
[2016-06-23] MEDS ORDERED: LOSARTAN POTASS50 MG PO (18:39)
[2016-06-23] MEDS ORDERED: LIPITOR20 MG PO (18:39)
[2016-06-24 07:17] LABS: BASOPHIL# 0.1 X10e3 (0-0.3); BASOPHIL% 1.2 % (0-2.5); EOSINOPHIL# 0.1 X10e3 (0-0.7); EOSINOPHIL% 3.2 % (0.0-7.0); HEMATOCRIT 36.3 % (35.0-45.0); HEMOGLOBIN 11.9 gm/dL (12.0-16.0); LYMPHOCYTE# 1.6 X10e3 (1.0-3.5); LYMPHOCYTE% 36.1 % (17.0-45.0); MEAN CELL VOLUME 90.3 FL (83-96); MEAN CORPUSCULAR HEMOGLOBIN 29.6 PG (28-34); MEAN CORPUSCULAR HGB CONC 32.8 g/dL (30-36); MEAN PLATELET VOLUME 8.4 FL (6.5-11.5); MONOCYTE# 0.4 X10e3 (0-1.0); MONOCYTE% 9.4 % (3.0-12.0); NEUTROPHIL# 2.3 X10e3 (1.5-7.1); NEUTROPHIL% 50.1 % (40-75); PLATELET COUNT 133 X10e3 (140-420); RED BLOOD COUNT 4.02 X10e (3.90-5.30); RED CELL DISTRIBUTION WIDTH 14.9 % (11.0-15.5); WHITE BLOOD COUNT 4.5 X10e3 (4.0-10.5)
[2016-06-24 07:18] LABS: DIFF IND NO
[2016-06-24 07:30] LABS: INR 1.8; PROTHROMBIN TIME (PATIENT) 19.4 SECONDS (9.6-11.5)
[2016-06-24 07:50] LABS: BUN/CREATININE RATIO 14.54; CREATININE SERUM 1.1 mg/dL (0.6-1.4); GLOM FILT RATE Estimated 48.7 mL/min (>60); POTASSIUM 4.1 mmol/L (3.5-5.1)
[2016-06-24 13:36] LABS: FOLATE (FOLIC ACID) >23.6 ng/mL (>5.8)
== END 2016-06-24 23:00 | disposition home or self-care (01) ==
LOC: CED 12:32 → CEDOF 17:25 → C5B 06-24 08:19
PROVIDERS: Emergency Medicine; Internal Medicine; Psychiatry & Neurology Neurology
DX: R42 Dizziness and giddiness (principal); R00.2 Palpitations; Z86.711 Personal history of pulmonary embolism; Z86.718 Personal history of other venous thrombosis and embolism; Z79.01 Long term (current) use of anticoagulants; I12.9 Hypertensive chronic kidney disease with stage 1 through stage 4 chronic kidney disease, or unspecified chronic kidney disease; N18.3 Chronic kidney disease, stage 3 (moderate); E78.5 Hyperlipidemia, unspecified; I08.3 Combined rheumatic disorders of mitral, aortic and tricuspid valves; Z87.891 Personal history of nicotine dependence; Z90.710 Acquired absence of both cervix and uterus; Z79.82 Long term (current) use of aspirin
CPT/HCPCS: 36415; 70450; 70544; 70547; 70551; 71010; 80048; 80076; 81003; 82553; 82607; 82746; 82947; 83036; 83735; 84439; 84443; 84484; 85025; 85610; 85730; 93005; 94760; 99285; G0378; J1940

== ENCOUNTER 2016-10-30 20:41 | Emergency (ER) | payer MEDICARE, BC ==
--- NOTE | ~2016-10-30 | CT71 ---
[facility] A Service of [facility] RADIOLOGY TEXT RESULTS PATIENT: ASHA ABBOTT LOCATION: [facility] : 39 UNIT #: [id number] AGE: [address]: Elysia Caldwell MD SEX: F ORDER DR: [id number] [facility] [address]. [place], [place] [address] [id number] E MR#: [id number] Acc #: [id number] NAME: ASHA ABBOTT : 1940 SEX: F STUDY DATE/TIME: 10/30/2016 23:15 UNIT: JONAH ROOM: STUDY DESCRIPTION: CT Head Wo Contrast Attending Physician: Elysia Caldwell M.D. Ordering Physician: Elysia Caldwell M.D. Primary Care Physician: James Chaudhari Jr., M.D. MEDICAL IMAGING REPORT This report is preliminary unless electronic signature is present EXAM CT head without contrast DATE: 10/30/2016 HISTORY 76-year-old female who fell at home and hit her head, with pain to the top of the head and dizziness today. COMPARISON Noncontrast CT head 06/23/2016. MRI brain 06/24/2016. TECHNIQUE This CT exam was performed with one or more of the following radiation dose reduction techniques: automatic exposure control, adjustment of mA and/or kV according to patient size, and iterative reconstruction. FINDINGS No acute displaced calvarial fracture is identified. Mild intracranial coronary artery calcifications are seen. Paranasal sinuses and mastoid air cells are clear. Mild generalized atrophy and mild periventricular chronic microvascular disease changes. No acute intracranial hemorrhage, mass lesion or mass effect, midline shift or evidence of acute or evolving infarct. IMPRESSION 1. No acute intracranial findings. 2. Mild atrophy and chronic microvascular disease changes. Dictated by... Negar Reynolds M.D. [facility] A Service of [facility] RADIOLOGY TEXT RESULTS PATIENT: ASHA ABBOTT LOCATION: [facility] : 39 UNIT #: [id number] AGE: [address]: Elysia Caldwell MD SEX: F ORDER DR: THIS IS AN ELECTRONICALLY VERIFIED REPORT Negar Reynolds M.D. at 10/31/2016 9:50 PM FRACISCO/mario TD: 10/31/2016 00:46 JOB #: [id number] MEDICAL IMAGING REPORT Page 1 of 1 COPY
--- NOTE | ~2016-10-30 | CR181 ---
[facility] A Service of [facility] RADIOLOGY TEXT RESULTS PATIENT: ASHA ABBOTT LOCATION: [facility] : 39 UNIT #: [id number] AGE: [address]: Elysia Caldwell MD SEX: F ORDER DR: [id number] [facility] [address]. [place], [place] [address] [id number] E MR#: [id number] Acc #: [id number] NAME: ASHA ABBOTT : 1940 SEX: F STUDY DATE/TIME: 10/30/2016 23:38 UNIT: [facility] ROOM: STUDY DESCRIPTION: CR Lumbar Spine 2 or 3 Views Attending Physician: Elysia Caldwell M.D. Ordering Physician: Elysia Caldwell M.D. Primary Care Physician: James Chaudhari Jr., M.D. MEDICAL IMAGING REPORT This report is preliminary unless electronic signature is present EXAM Three views lumbar spine. DATE 10/30/2016 HISTORY Neck and back pain after falling today. COMPARISON Lumbar spine series 12/16/2013. FINDINGS Chronic severe compression deformity of L1, similar to prior. There is mild bony retropulsion at this level, similar to prior. No acute lumbar spine fracture or acute subluxation is seen. Generalized osteopenic changes are present. IVC filter is in place. No sacroiliac joint diastasis. Advanced facet arthropathy is thought to be present at L5-S1, right greater than left, similar to prior. IMPRESSION 1. No acute lumbar spine findings. 2. Chronic L1 compression fracture. 3. Advanced L5-S1 facet arthropathy, similar to prior. Dictated by... Negar Reynolds M.D. THIS IS AN ELECTRONICALLY VERIFIED REPORT Negar Reynolds M.D. at 10/31/2016 9:49 PM [facility] A Service of [facility] RADIOLOGY TEXT RESULTS PATIENT: ASHA ABBOTT LOCATION: [facility] : 39 UNIT #: [id number] AGE: [address]: Elysia Caldwell MD SEX: F ORDER DR: FRACISCO/jarod TD: 10/31/2016 01:37 JOB #: [id number] MEDICAL IMAGING REPORT Page 1 of 1 COPY
--- NOTE | ~2016-10-30 | CR243 ---
[facility] A Service of [facility] RADIOLOGY TEXT RESULTS PATIENT: ASHA ABBOTT LOCATION: [facility] : 39 UNIT #: [id number] AGE: [address]: Elysia Caldwell MD SEX: F ORDER DR: [id number] [facility] [address] [place], [place] [address] [id number] E MR#: [id number] Acc #: [id number] NAME: ASHA ABBOTT : 1940 SEX: F STUDY DATE/TIME: 10/30/2016 23:37 UNIT: [facility] ROOM: STUDY DESCRIPTION: CR Thoracic Spine 3 Views Attending Physician: Elysia Caldwell M.D. Ordering Physician: Elysia Caldwell M.D. Primary Care Physician: James Chaudhari Jr., M.D. MEDICAL IMAGING REPORT This report is preliminary unless electronic signature is present EXAM Three views of thoracic spine DATE 10/30/2016 HISTORY 76-year-old female with neck and back pain today after falling. COMPARISON None. FINDINGS No thoracic vertebral body fracture or subluxation is seen. Mild marginal osteophyte formation is present in the [id number] thoracic spine. Disc space height appears relatively well preserved. Generalized osteopenic changes are present. IMPRESSION 1. No acute thoracic spine findings. Mild degenerative change and osteopenia. Dictated by... Negar Reyonlds M.D. THIS IS AN ELECTRONICALLY VERIFIED REPORT Negar Reynolds M.D. at 10/31/2016 9:49 PM [facility] TD: 10/31/2016 01:36 JOB #: [id number] [facility] A Service [facility] RADIOLOGY TEXT RESULTS PATIENT: ASHA ABBOTT LOCATION: [facility] : 39 UNIT #: [id number] AGE: [address]: Elysia Caldwell MD SEX: F ORDER DR: MEDICAL IMAGING REPORT Page 1 of 1 COPY
--- NOTE | ~2016-10-30 | CR58 ---
[facility] A Service of [facility] RADIOLOGY TEXT RESULTS PATIENT: ASHA ABBOTT LOCATION: [facility] : 39 UNIT #: [id number] AGE: [address]: Elysia Caldwell MD SEX: F ORDER DR: [id number] [facility] [address]. [place], [place] [address] [id number] E MR#: [id number] Acc #: [id number] NAME: ASHA ABBOTT : 1940 SEX: F STUDY DATE/TIME: 10/30/2016 23:25 UNIT: [facility] ROOM: STUDY DESCRIPTION: CR Cervical Spine 2 or 3 Views Attending Physician: Elysia Caldwell M.D. Ordering Physician: Elysia Caldwell M.D. Primary Care Physician: James Chaudhari Jr., M.D. MEDICAL IMAGING REPORT This report is preliminary unless electronic signature is present EXAM 4-view cervical spine DATE: 10/30/2016 HISTORY Fell today with neck and back pain. COMPARISON None. FINDINGS There is moderate diminished disc height with endplate sclerosis anterior osteophyte formation at C5-6. No acute appearing cervical spine fracture or subluxation is identified. Craniocervical junction appears intact. Mild posterior osteophyte formation is also present at C5-6. Mid-cervical facet arthropathy is present, thought to be greatest at C4-5, C5-6, C6-7. Presumed carotid bulb calcifications are present. IMPRESSION 1. Moderate diminished disc height at C5-6 with endplate sclerosis and anterior and posterior osteophyte formation. 2. No acute cervical spine fracture or subluxation is seen. 3. Mid-cervical facet arthropathy. Dictated by... Negar Reynolds M.D. THIS IS AN ELECTRONICALLY VERIFIED REPORT Negar Reynolds M.D. at 10/31/2016 9:49 PM LLH/mario [facility] A Service of [facility] RADIOLOGY TEXT RESULTS PATIENT: ASHA ABBOTT [id number] 39 UNIT #: [id number] AGE: [address]: Elysia Caldwell MD SEX: F ORDER DR: TD: 10/31/2016 01:46 JOB #: [id number] MEDICAL IMAGING REPORT Page 1 of 1 COPY
[~2016-10-30 20:41] MED LIST changes: +ASPIRIN81 MG PO; +COUMADIN4 MG PO; +LASIX PO; +LEVOTHYROXINE100 MCG PO; +LOSARTAN POTASS50 MG PO; +MULTI-VITAMIN1 EAC1 PO; +PRILOSEC PO; +SARAFEM20 MG PO; +WARFARIN SODIUM2 MG PO
[2016-10-30 23:21] LABS: INR 1.8; PROTHROMBIN TIME (PATIENT) 19.8 SECONDS (10.0-11.7)
== END 2016-10-31 01:15 | disposition home or self-care (01) ==
LOC: CED 20:41
PROVIDERS: Emergency Medicine
DX: S50.02XA Contusion of left elbow, initial encounter (principal); I10 Essential (primary) hypertension; E03.9 Hypothyroidism, unspecified; X58.XXXA Exposure to other specified factors, initial encounter; Z79.82 Long term (current) use of aspirin; Z79.899 Other long term (current) drug therapy
CPT/HCPCS: 36415; 70450; 72040; 72072; 72100; 85610; 85730; 99284

== ENCOUNTER 2016-11-22 21:18 | Emergency (ER) | payer MEDICARE, BC ==
[~2016-11-22] VITALS: Ht 170.2 cm; Wt 88.5 kg
[2016-11-22 21:46] LABS: URINE SOURCE CLEAN CATCH
[2016-11-22 22:04] LABS: URINE APPEARANCE CLEAR; URINE BLOOD 3+ (NEG); URINE GLUCOSE NEG (NEG); URINE KETONE NEG (NEG); URINE LEUKOCYTE ESTERASE 3+ (NEG); URINE NITRATE NEG (NEG); URINE PROTEIN 3+ (NEG); URINE UROBILINOGEN 0.2 MG/DL (NEG)
[2016-11-22 22:09] LABS: CULTURE INDICATED? YES; URINE BACTERIA AUWI NEG (NEGATIVE); URINE SQUAMOUS EPITHELIAL CELL OCC /[HPF]
[2016-11-22 22:12] LABS: URINE BILIRUBIN NEG (NEG); URINE COLOR RED
[2016-11-22 23:45] LABS: BASOPHIL# 0.1 X10e3 (0-0.3); BASOPHIL% 0.6 % (0-2.5); EOSINOPHIL# 0.2 X10e3 (0-0.7); HEMOGLOBIN 12.2 gm/dL (12.0-16.0); LYMPHOCYTE# 2.2 X10e3 (1.0-3.5); LYMPHOCYTE% 21.8 % (17.0-45.0); MEAN CORPUSCULAR HEMOGLOBIN 29.7 PG (28-34); MEAN PLATELET VOLUME 8.2 FL (6.5-11.5); MONOCYTE# 0.8 X10e3 (0-1.0); MONOCYTE% 8.3 % (3.0-12.0); NEUTROPHIL# 6.7 X10e3 (1.5-7.1); NEUTROPHIL% 67.3 % (40-75); PLATELET COUNT 166 X10e3 (140-420); RED BLOOD COUNT 4.11 X10e (3.90-5.30); RED CELL DISTRIBUTION WIDTH 14.7 % (11.0-15.5)
[2016-11-22 23:48] LABS: DIFF IND NO
[2016-11-22 23:58] LABS: PARTIAL THROMBOPLASTIN TIME 31.1 SECONDS (23.5-31.3); PROTHROMBIN TIME (PATIENT) 21.7 SECONDS (10.0-11.7)
[2016-11-23 00:17] LABS: ALBUMIN SERUM 3.7 g/dL (3.5-5.0); BILIRUBIN, DIRECT 0.1 mg/dL (0.0-0.2); BILIRUBIN,INDIRECT 0.8 mg/dL (0.0-0.9); BILIRUBIN,TOTAL 0.9 mg/dL (0.2-2.0); BUN/CREATININE RATIO 17.27; CALCIUM SERUM 8.7 mg/dL (8.4-10.2); CREATININE SERUM 1.1 mg/dL (0.6-1.4); GLOM FILT RATE Estimated 48.4 mL/min (>60); POTASSIUM 3.7 mmol/L (3.5-5.1); PROTEIN TOTAL SERUM 6.4 g/dL (6.0-8.3)
[2016-11-23] MEDS ORDERED: CIPRO PO (00:58)
== END 2016-11-23 00:58 | disposition home or self-care (01) ==
LOC: CED 21:18
PROVIDERS: Emergency Medicine
DX: R31.9 Hematuria, unspecified (principal); I12.9 Hypertensive chronic kidney disease with stage 1 through stage 4 chronic kidney disease, or unspecified chronic kidney disease; N18.3 Chronic kidney disease, stage 3 (moderate); K21.9 Gastro-esophageal reflux disease without esophagitis; F32.9 Major depressive disorder, single episode, unspecified; Z90.710 Acquired absence of both cervix and uterus; Z79.01 Long term (current) use of anticoagulants; Z79.82 Long term (current) use of aspirin; Z79.899 Other long term (current) drug therapy
CPT/HCPCS: 36415; 80048; 80076; 81003; 85025; 85610; 85730; 87086; 87088; 87186; 99283